=== PATIENT | male | born 1990 | race African-American/Black ===

== ENCOUNTER 2017-06-01 14:10 | Inpatient (IN) | payer OTHER ==
[~2017-06-01] VITALS: Ht 188 cm; Wt 116.0 kg
[2017-06-01] VITALS (560 sets, daily range): BP systolic 111–127; BP diastolic 69–78; PULSE 77–100; TEMP 97.2–97.6; O2SAT 89–100
[2017-06-01] MEDS ORDERED: NORVASC 5MG5 MG/TAB PO (14:25)
[2017-06-01] MEDS ORDERED: GLUCOPHAGE850 MG/TAB PO (14:25)
[2017-06-01 15:12] LABS: ARTERIAL BLD GAS O2 SATURATION 96.3 % (92-100); ARTERIAL BLD GAS TCO2 CT 19.8; ARTERIAL BLOOD GAS BASE EXCESS -6.9 (-2-2); ARTERIAL BLOOD GAS HCO3 18.6 meq/L (22-26); ARTERIAL BLOOD GAS PO2 88.9 mmHg (80-100); ARTERIAL BLOOD GAS pH 7.31 (7.35-7.45); OXYHEMOGLOBIN 95.2 %
[2017-06-01 15:13] LABS: ALLEN TEST YES; ALLENS TEST RESULT PASS; ATS? YES
[2017-06-01 15:15] LABS: ADD PATHOLOGY DIFF REVIEW NO
[2017-06-01 15:25] LABS: MEAN CELL VOLUME 82 fl (80.0-100.0); MEAN CORPUSCULAR HGB CONC 34 g/dl (33.0-37.0); PLATELET COUNT 212 K/mm3 (130-400); RED BLOOD COUNT 6.55 M/mm3 (4.20-5.60); WHITE BLOOD COUNT 10.1 K/mm3 (4.8-10.8)
[2017-06-01 15:31] LABS: HEMATOCRIT 53.8 % (42.0-52.0); HEMOGLOBIN 18.1 g/dl (13.5-18.0); MEAN CORPUSCULAR HEMOGLOBIN 28 pg (27.0-31.0)
[2017-06-01 15:49] LABS: BAND 19 % (0-10); EOSINOPHIL 5 % (0-4); LYMPHOCYTE 8 % (20.0-51.0); NEUTROPHILS 58 % (42.0-75.2); TOTAL CELLS COUNTED 100
[2017-06-01 15:50] LABS: MICROCYTOSIS 1+; PLATELET ESTIMATE NORMAL (NORMAL)
[2017-06-01 18:27] LABS: CALCIUM 8.5 mg/dL (8.4-10.2); CREATININE, serum 1.02 mg/dL (0.66-1.25); POTASSIUM 4.6 mmol/L (3.4-5.0)
[2017-06-02] VITALS (614 sets, daily range): BP systolic 99–141; BP diastolic 58–81; PULSE 67–79; TEMP 97.6–98.9; O2SAT 89–100
[2017-06-02 05:56] LABS: ARTERIAL BLD GAS O2 SATURATION 96.7 % (92-100); ARTERIAL BLD GAS TCO2 CT 20.8; ARTERIAL BLOOD GAS BASE EXCESS -5.3 (-2-2); ARTERIAL BLOOD GAS HCO3 19.7 meq/L (22-26); ARTERIAL BLOOD GAS PO2 91.8 mmHg (80-100); ARTERIAL BLOOD GAS pH 7.35 (7.35-7.45); OXYHEMOGLOBIN 95.1 %
[2017-06-02 05:58] LABS: ATS? YES
[2017-06-02 05:59] LABS: ALLEN TEST YES; ALLENS TEST RESULT PASS
[2017-06-02 06:08] LABS: ADJUSTED CALCIUM 8.6 mg/dL (8.4-10.2); ALBUMIN 2.7 gm/dL (3.5-5.0); BILIRUBIN,TOTAL 0.7 mg/dL (0.0-1.0); CALCIUM 7.6 mg/dL (8.4-10.2); CREATININE, serum 0.98 mg/dL (0.66-1.25); MAGNESIUM 1.9 mg/dL (1.6-2.3); POTASSIUM 3.6 mmol/L (3.4-5.0); TOTAL PROTEIN 5.3 gm/dL (6.4-8.2)
[2017-06-02 06:37] LABS: TSH w REFLEX 0.433 uIU/mL (0.465-4.680)
[2017-06-02 10:47] LABS: ADD PATHOLOGY DIFF REVIEW NO
[2017-06-02 10:49] LABS: HEMATOCRIT 44.1 % (42.0-52.0); MEAN CELL VOLUME 85 fl (80.0-100.0); MEAN CORPUSCULAR HEMOGLOBIN 28 pg (27.0-31.0); MEAN CORPUSCULAR HGB CONC 33 g/dl (33.0-37.0); MEAN PLATELET VOLUME 12.3 fl (7.4-10.4); PLATELET COUNT 184 K/mm3 (130-400); RED BLOOD COUNT 5.22 M/mm3 (4.20-5.60); WHITE BLOOD COUNT 6.4 K/mm3 (4.8-10.8)
[2017-06-02 10:51] LABS: HEMOGLOBIN 14.6 g/dl (13.5-18.0)
[2017-06-02 11:10] LABS: BAND 17 % (0-10); EOSINOPHIL 6 % (0-4); LYMPHOCYTE 41 % (20.0-51.0); NEUTROPHILS 34 % (42.0-75.2); PLATELET ESTIMATE NORMAL (NORMAL); TOTAL CELLS COUNTED 100
[2017-06-02 11:11] LABS: MICROCYTOSIS 1+
[2017-06-03 04:03] VITALS: BP 123/70; PULSE 67; TEMP 97.5
[2017-06-03 06:30] LABS: ADD PATHOLOGY DIFF REVIEW NO
[2017-06-03 06:36] LABS: HEMATOCRIT 41.4 % (42.0-52.0); HEMOGLOBIN 13.6 g/dl (13.5-18.0); MEAN CELL VOLUME 84 fl (80.0-100.0); MEAN CORPUSCULAR HEMOGLOBIN 28 pg (27.0-31.0); MEAN CORPUSCULAR HGB CONC 33 g/dl (33.0-37.0); MEAN PLATELET VOLUME 12.1 fl (7.4-10.4); PLATELET COUNT 173 K/mm3 (130-400); RED BLOOD COUNT 4.91 M/mm3 (4.20-5.60)
[2017-06-03 06:53] LABS: ADJUSTED CALCIUM 8.8 mg/dL (8.4-10.2); BILIRUBIN,TOTAL 0.4 mg/dL (0.0-1.0); CREATININE, serum 0.95 mg/dL (0.66-1.25); MAGNESIUM 1.6 mg/dL (1.6-2.3); POTASSIUM 3.8 mmol/L (3.4-5.0); TOTAL PROTEIN 5.6 gm/dL (6.4-8.2)
[2017-06-03 07:52] VITALS: BP 137/76; PULSE 75; TEMP 98
[2017-06-03 08:53] LABS: BAND 35 % (0-10); EOSINOPHIL 1 % (0-4); LYMPHOCYTE 28 % (20.0-51.0); METAMYELOCYTE 1 % (0-0); MYELOCYTE 1 % (0-0); NEUTROPHILS 32 % (42.0-75.2); PLATELET ESTIMATE NORMAL (NORMAL); TOTAL CELLS COUNTED 100
[2017-06-03 11:55] VITALS: BP 151/65; PULSE 65; TEMP 98.3
[2017-06-03 14:49] VITALS: BP 132/88; BP 136/93; PULSE 73; PULSE 98; TEMP 98.4
[2017-06-03 20:35] VITALS: BP 134/53; PULSE 64; TEMP 99.2
[2017-06-03 23:52] VITALS: BP 111/36; PULSE 54; TEMP 98.8
[2017-06-04 04:34] VITALS: BP 116/74; PULSE 55; TEMP 97.7
[2017-06-04 06:18] LABS: HEMATOCRIT 41.3 % (42.0-52.0); HEMOGLOBIN 13.9 g/dl (13.5-18.0); MEAN CELL VOLUME 83 fl (80.0-100.0); MEAN CORPUSCULAR HEMOGLOBIN 28 pg (27.0-31.0); MEAN CORPUSCULAR HGB CONC 34 g/dl (33.0-37.0); MEAN PLATELET VOLUME 11.9 fl (7.4-10.4); PLATELET COUNT 163 K/mm3 (130-400); RED BLOOD COUNT 4.96 M/mm3 (4.20-5.60); WHITE BLOOD COUNT 7.5 K/mm3 (4.8-10.8)
[2017-06-04 06:19] LABS: ADD PATHOLOGY DIFF REVIEW NO
[2017-06-04 06:45] LABS: CALCIUM 8.5 mg/dL (8.4-10.2); CREATININE, serum 0.85 mg/dL (0.66-1.25); MAGNESIUM 1.6 mg/dL (1.6-2.3)
[2017-06-04 06:50] LABS: BAND 3 % (0-10); BASOPHIL 2 % (0-2); EOSINOPHIL 7 % (0-4); LYMPHOCYTE 35 % (20.0-51.0); NEUTROPHILS 49 % (42.0-75.2); TOTAL CELLS COUNTED 100
[2017-06-04 06:51] LABS: PLATELET ESTIMATE NORMAL (NORMAL)
[2017-06-04 06:52] LABS: POTASSIUM 3.3 mmol/L (3.4-5.0)
[2017-06-04 08:51] VITALS: BP 132/72; PULSE 61; TEMP 98.8
[2017-06-04 11:18] VITALS: BP 106/74; PULSE 58; TEMP 98.8
[2017-06-04] MEDS ORDERED: IMODIUM 2MG CAPS2 MG PO (12:53)
[2017-06-04] MEDS ORDERED: THE MEDICINE SH1 DE3 MC (12:56)
[2017-06-04] MEDS ORDERED: FREESTYLE PREC1 EAC5 MC (12:56)
[2017-06-04] MEDS ORDERED: LANCETS MC (12:57)
[2017-06-04] MEDS ORDERED: NOVOLOG MIX 70/33 ML SQ (12:58)
[2017-06-04] MEDS ORDERED: GLUCOSE TEST ST1 DEV MC (12:58)
[2017-06-04 17:47] VITALS: BP 123/75; PULSE 62; TEMP 98.7
[2017-06-05 13:36] LABS: ISLET CELL IGG CYTOPLASMIC AAB <1:4 (<1:4)
== END 2017-06-04 20:10 | disposition home or self-care (01) | DRG 392 ==
LOC: ICU 14:10 → MEDICAL 14:10 → ICU 06-02 10:09 → MEDICAL 06-02 11:56
PROVIDERS: Internal Medicine; Nurse Practitioner Family
DX: A09 Infectious gastroenteritis and colitis, unspecified (principal); E87.2 Acidosis; K92.1 Melena; E11.65 Type 2 diabetes mellitus with hyperglycemia; I10 Essential (primary) hypertension; R16.0 Hepatomegaly, not elsewhere classified; E87.6 Hypokalemia; Z79.84 Long term (current) use of oral hypoglycemic drugs
CPT/HCPCS: 99223-AI; 99232-AI; 99233-AI; 99239; C9113; J1650; J1815; J1956; J2270; J3475; J3480; J7030